=== PATIENT | female | born 1995 | race Hispanic/Latino ===

== ENCOUNTER 2020-10-22 04:10 | Emergency (ER) | payer SELFPAY ==
[2020-10-22 04:20] VITALS: BP 114/73; PULSE 70; RESP 16; TEMP 36.6; O2SAT 97
--- NOTE | 2020-10-22 04:36 | ED.GENADULT ---
HPI - General Adult General Chief complaint: Vaginal Bleeding Stated complaint: Abnormal vaginal [id number] Time Seen by Provider: 10/22/20 04:20 History of Present Illness HPI narrative: Patient a 25-year-old female who presents the emergency department with chief complaint of generalized weakness. Patient reports that she started her period and has had heavier bleeding. Patient states she is passed some large clots and reports that she has had a fair amount of bleeding which she describes as having to change a pad approximately every 45 minutes to 1 hour. Patient states she feels weak and rundown reports that she has prior history of anemia and has required a transfusion before in the past 2012. Patient reports her [employer] is in [place] at [facility] and reports that she has had a Mirena removed but they were unable to find it so they assumed that it had fallen out after 2 - ultrasounds. Patient currently is not having any pain states she just has a little bit of cramping. Patient states she just feels generally weak and rundown. Related Data Allergies Allergy/AdvReac Type Severity Reaction Status Date / Time Antihistamines - Alkylamine Allergy Unknown Unknown Verified 10/22/20 04:14 Antihistamines - Ethanolamine Allergy Unknown Unknown Verified 10/22/20 04:14 Antihistamines - Allergy Unknown Unknown Verified 10/22/20 04:14 Ethylenediamine Antihistamines - Piperazine Allergy Unknown Unknown Verified 10/22/20 04:14 Antihistamines - Piperidine Allergy Unknown Unknown Verified 10/22/20 04:14 antihistamines Allergy Unknown Unknown Uncoded 10/22/20 04:14 PEAN Allergy Unknown Anaphylactic Uncoded 10/22/20 04:14 Shock Review of Systems Review of Systems: Narrative: A 10 system review of systems was completed on the patient and is negative except for what is stated in the HPI. Nursing and ancillary documentation was reviewed. [facility] Family History Family History (Updated 04/23/16 @ 23:21 by DOCTOR UNKNOWN) Mother Patient's mother is in good health Father Patient's father is in good health Sibling Patient's sister is in good health Social History Social History Smoking status: Never smoker Alcohol intake: never Comments Past medical history significant for valvular heart disease and dysfunctional uterine bleeding Social history patient denies smoking Exam Narrative: Exam Narrative: GENERAL: Well-appearing, well-nourished, and in no acute distress. HEAD: Normocephalic, atraumatic. EYES: PERRLA and EOMI. ENT: Nares clear, no rhinorrhea or epistaxis. Mucous membranes moist. NECK: Supple. CHEST: Clear to auscultation. No respiratory distress. HEART: Regular rate and rhythm. No murmur heard. Normal peripheral pulses. ABDOMEN: Soft, nontender, nondistended, normal active bowel sounds. EXTREMITIES: Normal range of motion. No edema. SKIN: Warm, dry, no rash. NEURO: No focal deficits. Alert and oriented x3. PSYCH: Normal mood and affect. Course Vital Signs Vital signs: Vital Signs Temperature 36.6 C 10/22/20 04:20 Pulse Rate 70 10/22/20 04:20 Respiratory Rate 16 10/22/20 04:20 Blood Pressure 114/73 10/22/20 04:20 Pulse Oximetry 97 10/22/20 04:20 Temperature 36.6 C 10/22/20 04:20 Pulse Rate 69 10/22/20 05:11 Respiratory Rate 16 10/22/20 04:20 Blood Pressure 103/60 10/22/20 05:11 Pulse Oximetry 97 10/22/20 04:20 Medical Decision Making Vital Signs Vital Signs: Vital Signs Temperature 36.6 C 10/22/20 04:20 Pulse Rate 70 10/22/20 04:20 Respiratory Rate 16 10/22/20 04:20 Blood Pressure 114/73 10/22/20 04:20 Pulse Oximetry 97 10/22/20 04:20 Temperature 36.6 C 10/22/20 04:20 Pulse Rate 69 10/22/20 05:11 Respiratory Rate 16 10/22/20 04:20 Blood Pressure 103/60 10/22/20 05:11 Pulse Oximetry 97 10/22/20 04:20 Lab Data Result diagrams: 10/22/20 04:37 10/22/20 04:37 Labs: [facility]
[2020-10-22] MEDS: ONDANSETRON INJ 4 MG/2 ML VIAL IV PUSH (04:45)
[2020-10-22] MEDS: SODIUM CHLORIDE 0.9% IV 1,000 ML 999 ML IV CONT (04:45)
[2020-10-22 04:59] LABS: Basophils Absolute Auto 0.1 K/mm3 (0.0-0.1); Basophils Percent Auto 0.7 % (0.2-1.2); Eosinophils Absolute Auto 0.2 K/mm3 (0-0.3); Eosinophils Percent Auto 3.1 % (0-4.4); Hematocrit 39.4 % (37.0-47.0); Hemoglobin 12.1 g/dL (12.0-15.0); Immature Granulocyte Absolute 0.01 K/mm3 (0.00-0.031); Immature Granulocyte Percent A 0.1 % (0-0.5); Immature Platelet Fraction Pct 15.3 % (0.9-11.2); Lymphocytes Absolute Auto 2.26 K/mm3 (0.9-3.2); Lymphocytes Percent Auto 33.3 % (18.3-44.2); Mean Corpuscular HGB Conc 30.7 g/dl (32-36); Mean Corpuscular Hemoglobin 22.9 pg (26-34); Mean Corpuscular Volume 74.6 fl (80-100); Monocytes Absolute Auto 0.5 K/mm3 (0.1-0.6); Monocytes Percent Auto 6.8 % (2.6-8.5); Neutrophils Absolute Auto 3.8 K/mm3 (1.3-6.7); Platelet Count Result 200 k/mm3 (150-375); Red Blood Count 5.28 M/mm3 (4.2-5.4); Red Cell Distribution Width 18.2 % (11.5-14.5); White Blood Count 6.8 K/mm3 (4.5-10.0)
[2020-10-22 05:08] LABS: INR 1.1; Prothrombin Time 14.6 Seconds (11.1-14.7)
[2020-10-22 05:09] LABS: Partial Thromboplastin Time 21.3 SECONDS (22.3-36.8)
[2020-10-22 05:10] VITALS: BP 111/57
[2020-10-22 05:11] VITALS: BP 100/59; BP 103/60; PULSE 65; PULSE 69
[2020-10-22 05:11] LABS: Alanine Aminotransferase 21 U/L (4-35); Albumin Level 4.6 g/dL (3.5-5.1); Alkaline Phosphatase 78 U/L (38-126); Anion Gap 12 mmol/L (8-16); Aspartate Amino Transferase 39 U/L (14-36); Bilirubin,Total 0.5 mg/dL (0.2-1.3); Blood Urea Nitrogen 18 mg/dL (7-17); Calcium 9.2 mg/dL (8.4-10.2); Carbon Dioxide 22 mmol/L (22-30); Chloride 104 mmol/L (98-107); Estimated Glomerular Filt Rate > 60; Glucose 102 mg/dL (65-105); Lipase 59 U/L (23-300); Potassium 3.5 mmol/L (3.4-5.0); Sodium 138 mmol/L (137-145)
[2020-10-22 05:50] LABS: Add Urine Microscopic? YES; Appearance Urine Cloudy (Clear); Bilirubin Urine Negative (Negative); Blood Urine 2+ (Negative); Color Urine Red (Yellow); Glucose Urine UA Negative (Negative); Ketones Urine Negative (Negative); Leukocyte Esterase Ur Negative LEU/UL (Negative); Nitrate Urine Negative (Negative); Protein Urine 2+ mg/dL (Negative); RBC Urine >75 /hpf (0-2); Specific Grav Ur 1.009 (1.001-1.035); Urobilinogen Urine Negative mg/dL (<2.0)
[2020-10-22 06:07] VITALS: BP 108/63; PULSE 85; RESP 16; TEMP 36.7; O2SAT 100
== END 2020-10-22 06:08 | disposition home or self-care (01) ==
PROVIDERS: Emergency Provider Emergency Medicine; PCP Internal Medicine
DX: N93.8 Other specified abnormal uterine and vaginal bleeding (principal)
CPT/HCPCS: 36415; 80053; 81001; 81025; 83690; 85025; 85055; 85610; 85730; 86850; 86900; 86901; 96361; 96374; 99284; J2405; J7030

== ENCOUNTER 2022-05-20 09:55 | Emergency (ER) | payer SELFPAY ==
[2022-05-20 10:07] VITALS: BP 120/79; PULSE 73; RESP 18; TEMP 36.5; O2SAT 97
--- NOTE | 2022-05-20 10:24 | ED.FEMALEGU ---
HPI - Female Genitourinary General Chief complaint: THERMAL ENGINEER Stated complaint: BARTHOLINS CYST Time Seen by Provider: 05/20/22 09:59 Source: patient and RN notes reviewed Mode of arrival: ambulatory Limitations: no limitations History of Present Illness HPI Narrative: 27 years old female complaining of pain and swelling at the left side of her vulva started 5 days ago history of Bartholin cyst 3 years ago. Patient was seen at urgent care 5 days ago and started on antibiotic without any improvement. She denies any fever, chills, nausea, vomiting. Related Data Allergies Allergy/AdvReac Type Severity Reaction Status Date / Time Antihistamines - Alkylamine Allergy Unknown Unknown Verified 10/22/20 04:14 Antihistamines - Ethanolamine Allergy Unknown Unknown Verified 10/22/20 04:14 Antihistamines - Allergy Unknown Unknown Verified 10/22/20 04:14 Ethylenediamine Antihistamines - Piperazine Allergy Unknown Unknown Verified 10/22/20 04:14 Antihistamines - Piperidine Allergy Unknown Unknown Verified 10/22/20 04:14 antihistamines Allergy Unknown Unknown Uncoded 10/22/20 04:14 PEAN Allergy Unknown Anaphylactic Uncoded 10/22/20 04:14 Shock Review of Systems Review of Systems: All systems reviewed & are unremarkable except as noted in HPI and below PMFSH Family History Family History Mother Patient's mother is in good health Father Patient's father is in good health Sibling Patient's sister is in good health Social History Social History Smoking status: Never smoker Alcohol intake: never Exam Narrative: General appearance: Well-developed, well-nourished Skin: Normal color Head: Normocephalic, nontraumatic Eyes: Clear conjunctiva ENT: Oropharynx normal, ears normal, nose normal Neck: Supple, nontender Chest and respiratory: Airway patent, no respiratory distress, no accessory muscle use Heart: Regular rate/rhythm Abdomen: Soft, nontender, no organomegaly, quiet bowel sounds Vascular: Normal peripheral pulses, normal capillary refill. Musculoskeletal: Normal range of motion, nontender back Neurologic: Alert and oriented ?3, MASTER BREWER is normal as tested, no gross motor deficit : External Female Exam: normal external appearance (Bartholin cyst left labia minora, 4 x 4 centimeter, red, fluctuant, tender) Course Vital Signs Vital signs: Vital Signs Temperature 36.5 C 05/20/22 10:07 Pulse Rate 73 05/20/22 10:07 Respiratory Rate 18 05/20/22 10:07 Blood Pressure 120/79 05/20/22 10:07 Pulse Oximetry 97 05/20/22 10:07 Temperature 36.5 C 05/20/22 10:07 Pulse Rate 73 05/20/22 10:07 Respiratory Rate 18 05/20/22 10:07 Blood Pressure 120/79 05/20/22 10:07 Pulse Oximetry 97 05/20/22 10:07 Procedures Abscess I/D bartholin's gland: Date of Incision: 05/20/22 Time of Incision: 11:00 Side (if applicable): left Sedation/analgesia: none Local Anesthetic: lidocaine 1% Amount of anesthesia used (mL): 2 Technique: incised with #11 blade Amount of fluid expressed (mL): 20 Irrigation: No Packing used?: Word catheter I&D Results: Pus and Blood Discharge Plan Discharge Clinical Impression: Bartholin cyst Patient Disposition: Home, Self-Care Condition: Improved Instructions: Antibiotic Form, Bartholin Cyst (ED) Additional Instructions: Return if symptoms are worsening , call [facility] for appointment, take Tylenol as as needed for aches and pain, continue home medications. Follow-up/Referrals: Woody Angel MD [Physician] -
[2022-05-20] MEDS: HYDROmorphone HCL INJ (*CRX) 1 MG/ML SYR IM (10:33)
[2022-05-20] MEDS: ONDANSETRON HCL ODT 4 MG TABLET PO (10:33)
== END 2022-05-20 11:51 | disposition home or self-care (01) ==
PROVIDERS: Emergency Provider Emergency Medicine
DX: N75.0 Cyst of Bartholin's gland (principal)
CPT/HCPCS: 56420; 96372; 99283; A9270; J1170